=== PATIENT | male | born 1955 | race Caucasian/White ===

== ENCOUNTER 2022-02-24 23:06 | Inpatient (IN) | payer MEDICARE, OTHER ==
[2022-02-24] MEDS ORDERED: Sodium Chloride 0.9% 10 ML Syringe FLUSH PRN (23:44)
[2022-02-25 00:08] LABS: ANION GAP 11.9 mEq/L (7-13); CHLORIDE,CL 98 mmol/L (98-107); SODIUM,NA 131 mmol/L (136-145)
[2022-02-25 00:11] LABS: PTT,PARTIAL THROMBOPLSTIN TIME 27.8 SEC (22.0-34.0)
[2022-02-25 00:12] LABS: ESTIMATED GFR 50 mL/min (>=60)
[2022-02-25] MEDS: Sodium Chloride 0.9% 1,000 ML IV ONE ×4 (01:01→04:59)
[2022-02-25 01:11] LABS: AMPHETAMINES,URINE NEGATIVE (NEGATIVE); BARBITURATES,URINE NEGATIVE (NEGATIVE); BENZODIAZEPINE,URINE NEGATIVE (NEGATIVE); MDMA (ECSTASY), URINE NEGATIVE (NEGATIVE); METHADONE,URINE NEGATIVE (NEGATIVE); METHAMPHETAMINES,URINE NEGATIVE (NEGATIVE); OPIATES,URINE NEGATIVE (NEGATIVE); OXYCODONE,URINE NEGATIVE (NEGATIVE); PHENCYCLIDINE,URINE NEGATIVE (NEGATIVE); TCA,URINE NEGATIVE (NEGATIVE)
[2022-02-25] MEDS ORDERED: Azithromycin 500 MG in Sodium Chloride 0.9% 250 ML IV ONE (01:11)
[2022-02-25] MEDS ORDERED: cefTRIAXone 1 GM in Sodium Chloride 0.9% 50 ML IV ONE (01:11)
[2022-02-25 01:46] LABS: O2 DELIVERY DEVICE CPAP
[2022-02-25 01:50] LABS: O2 SATURATION ARTERIAL 98 % (95-100); PCO2 ARTERIAL 36 mmHg (35-45); PO2 ARTERIAL 94 mmHg (70-100)
[2022-02-25 01:51] LABS: BASE EXCESS ARTERIAL -6 mmol/L ((-2)-(+3)); BICARBONATE,ARTERIAL 18.4 mmol/L (22-26)
[2022-02-25] MEDS ORDERED: Sodium Chloride 0.9% 1,000 ML IV ONE ×2 (03:07→03:08)
[2022-02-25] MEDS ORDERED: HYDROmorphone 0.5 MG/0.5 ML Syringe IVPUSH PRN (05:26)
[2022-02-25] MEDS ORDERED: Polyethylene Glycol 3350 Powder 17 GM Packet PO PRN (05:26)
[2022-02-25] MEDS ORDERED: Bisacodyl 5 MG Tab PO PRN (05:26)
[2022-02-25] MEDS ORDERED: Magnesium Hydroxide 400 MG/5 ML Susp 30 ML Cup PO PRN (05:26)
[2022-02-25] MEDS ORDERED: Acetaminophen 325 MG Tab PO PRN (05:26)
[2022-02-25] MEDS ORDERED: Albuterol/Ipratropium 3.0-0.5 MG/3 ML Neb Soln NEB PRN (05:26)
[2022-02-25] MEDS ORDERED: Ondansetron 4 MG/2 ML SDV IVPUSH PRN (05:26)
[2022-02-25] MEDS ORDERED: Acetaminophen/HYDROcodone 325-5 MG Tab PO PRN (05:26)
[2022-02-25] MEDS ORDERED: Docusate Sodium 100 MG Cap PO PRN (05:26)
[2022-02-25] MEDS ORDERED: Furosemide 40 MG/4 ML VIAL IVPUSH ONE (05:47)
[2022-02-25] MEDS ORDERED: Morphine 2 MG/ML SYRINGE IVPUSH ONE (05:48)
[2022-02-25] MEDS ORDERED: Codeine/Promethazine 10-6.25 MG/5 ML Syrup 5 ML UD Cup PO ONE (05:48)
[2022-02-25] MEDS ORDERED: Heparin Sodium 5,000 Units/ML Vial IVPUSH ONE ×3 (05:50→12:50)
[2022-02-25] MEDS ORDERED: Clopidogrel 75 MG Tab PO ONE (05:51)
[2022-02-25] MEDS ORDERED: Heparin Sodium/0.45% NaCl 25,000 UNITS/500 ML BAG IV SCH (06:00)
[2022-02-25] MEDS ORDERED: Heparin Sodium/0.45% NaCl 500 ML ONE (06:23)
[2022-02-25 07:30] LABS: HEMOGLOBIN A1C 5.5 % (<5.7)
[2022-02-25] MEDS ORDERED: hydrALAZINE 20 MG/ML SDV IVPUSH PRN (07:47)
[2022-02-25] MEDS ORDERED: Metoprolol Tartrate 5 MG/5 ML SDV IVPUSH PRN (07:47)
[2022-02-25] MEDS ORDERED: Folic Acid 1 MG Tab PO ONE (08:30)
[2022-02-25] MEDS ORDERED: Cholecalciferol (Vitamin D3) 25 MCG Tab PO ONE (08:30)
[2022-02-25] MEDS ORDERED: Vitamin B Complex Cap PO ONE (08:30)
[2022-02-25] MEDS ORDERED: Metoprolol Succinate 50 MG Tab.ER PO SCH (09:00)
[2022-02-25] MEDS ORDERED: Folic Acid 1 MG Tab PO SCH (09:00)
[2022-02-25] MEDS ORDERED: Cholecalciferol (Vitamin D3) 25 MCG Tab PO SCH (09:00)
[2022-02-25] MEDS ORDERED: Vitamin B Complex Cap PO SCH (09:00)
[2022-02-25] MEDS ORDERED: Saccharomyces Boulardii (Probiotic) 250 MG Cap PO SCH (09:00)
[2022-02-25 12:34] LABS: ANION GAP 11.6 mEq/L (7-13)
[2022-02-26] MEDS ORDERED: Azithromycin 500 MG in Sodium Chloride 0.9% 250 ML IV SCH (09:00)
[2022-02-26] MEDS ORDERED: cefTRIAXone 1 GM in Sodium Chloride 0.9% 50 ML IV SCH (09:00)
== END 2022-02-25 13:45 | DRG 280 ==
LOC: DL.ED 23:06 → DL.MS 02-25 05:13
PROVIDERS: ADMIT Internal Medicine; ATTEND Internal Medicine
DX: I21.4 Non-ST elevation (NSTEMI) myocardial infarction (principal); J18.9 Pneumonia, unspecified organism; J96.90 Respiratory failure, unspecified, unspecified whether with hypoxia or hypercapnia; W19.XXXA Unspecified fall, initial encounter; Z79.01 Long term (current) use of anticoagulants; N17.9 Acute kidney failure, unspecified; E87.2 Acidosis; Z28.311 Partially vaccinated for COVID-19; T79.6XXA Traumatic ischemia of muscle, initial encounter; E87.1 Hypo-osmolality and hyponatremia; Z20.822 Contact with and (suspected) exposure to COVID-19; E80.6 Other disorders of bilirubin metabolism; E86.0 Dehydration; R80.9 Proteinuria, unspecified; I10 Essential (primary) hypertension; D69.6 Thrombocytopenia, unspecified; R55 Syncope and collapse; I48.0 Paroxysmal atrial fibrillation; G47.33 Obstructive sleep apnea (adult) (pediatric); E66.9 Obesity, unspecified; R73.9 Hyperglycemia, unspecified; Z68.37 Body mass index [BMI] 37.0-37.9, adult; Z79.82 Long term (current) use of aspirin; Z79.899 Other long term (current) drug therapy
CPT/HCPCS: 36415 ×2; 36600; 70450; 71250; 80053; 80061; 80305; 80307; 81001; 82550; 82803; 83605; 84484 ×3; 85025; 85610; 85730; 86140; 87040 ×2; 93005; J0456; J0696; J3490; J7030 ×6; J7050; U0002; 71045; 80048; 83036; 83735; 85651; 87070; 87205; 93880; 96361; 96365; 96367; 99285-25; A9270-GY; J1644; J1940; J2270